=== PATIENT | male | born 1955 | race Caucasian/White ===

== ENCOUNTER → 2023-06-27 09:40 | Outpatient (BNVA) | payer OTHER, SELFPAY | PROVIDERS: Family Provider Nurse Practitioner Family; PCP Nurse Practitioner Family; Visit Provider Nurse Practitioner Family | DX: M54.9 Dorsalgia, unspecified (principal); G89.29 Other chronic pain; L81.4 Other melanin hyperpigmentation; L82.1 Other seborrheic keratosis; M25.511 Pain in right shoulder; I25.10 Atherosclerotic heart disease of native coronary artery without angina pectoris | CPT/HCPCS: 80053; 80061; 85025 ==

== ENCOUNTER → 2023-12-26 09:34 | Outpatient (BNVA) | payer MEDICARE, SELFPAY | PROVIDERS: Family Provider Nurse Practitioner Family; PCP Nurse Practitioner Family; Visit Provider Nurse Practitioner Family | DX: M54.9 Dorsalgia, unspecified (principal); G89.29 Other chronic pain; I25.10 Atherosclerotic heart disease of native coronary artery without angina pectoris | CPT/HCPCS: 80053; 83690; 85025; 86140 ==

== ENCOUNTER 2024-01-16 09:23 | Outpatient (CLI) | payer MEDICARE, SELFPAY ==
--- NOTE | 2024-01-16 09:30 | CT_ITS ---
WS: [id number] CT ABDOMEN AND PELVIS WITH AND WITHOUT CONTRAST HISTORY: R10.9 - Unspecified abdominal pain TECHNIQUE: Unenhanced 5 mm axial imaging first performed through the abdomen. Post contrast imaging t hrough the abdomen and pelvis. Oral contrast has not been provided. Sagittal and coronal reformats a re submitted. All CT scans at [facility] at least one of these dose optimization techniques: automated exposure control; mA and/or kV adjustment per patient size (includes targeted exams where d ose is matched to clinical indication); or iterative reconstruction. CONTRAST: Omnipaque 350; 95 mL IV. DLP: 2385.39 mGy.cm COMPARISON: None available. Lung bases are clear. Heart size is normal. No hiatal hernia. Normal size liver and spleen. Normal pancreas. Normal gallbladder. Normal adrenal glands. Mild athero sclerosis aorta. Mild perinephric stranding around each kidney. No mass or calcification. No renal ob struction. No ascites or adenopathy. Normal stomach and small bowel. Normal appendix. There are a few scattered diverticula in the sigmoid colon. No acute diverticulitis. Prior abdominal hernia repair. Spondylitic changes in the lumbar spine. Mild osteophytic ridging causing foraminal narrowing beginni ng at L3-4 through L5-S1. Component of central stenosis is also present at L3-4 and L4-5. CT/CT abdomen pelvis wo/w [id number] IMPRESSION: 1. No renal obstruction or calcification. There is very slight perinephric str anding which may be chronic. 2. Mild distal colon diverticulosis without acute diverticulitis. 3. No ascites or adenopathy. 4. Component of central and foraminal stenosis in the lumbar spine from L3-4 t o L5-S1. For radiculopathy symptoms recommend MRI lumbar spine, noncontrast.
[2024-01-16] MEDS: iohexol 300 mg/mL 100 mL Btl IV (10:03)
== END 2024-01-16 09:24 | disposition home or self-care (01) ==
LOC: RAD 09:23
PROVIDERS: Family Provider Nurse Practitioner Family; PCP Nurse Practitioner Family; Visit Provider Nurse Practitioner Family
DX: R10.9 Unspecified abdominal pain (principal); K57.30 Diverticulosis of large intestine without perforation or abscess without bleeding; M48.061 Spinal stenosis, lumbar region without neurogenic claudication; M48.07 Spinal stenosis, lumbosacral region
CPT/HCPCS: 74178; Q9967

== ENCOUNTER → 2024-01-21 10:29 | Outpatient (BNVA) | payer MEDICARE, SELFPAY | PROVIDERS: Family Provider Nurse Practitioner Family; PCP Nurse Practitioner Family; Visit Provider Nurse Practitioner Family | DX: I25.10 Atherosclerotic heart disease of native coronary artery without angina pectoris (principal) | CPT/HCPCS: 80048; 86003; 86008; 86618; 86666; 86757 ==

== ENCOUNTER 2024-05-25 12:01 | Emergency (ER) | payer MEDICARE, SELFPAY ==
[2024-05-25 12:18] VITALS: BP 142/86; PULSE 55; TEMP 36.7; O2SAT 96; BMI 40.3
[2024-05-25 14:01] LABS: Basophils % 0.4 %; Eosinophils # 0.1 10^3/uL (0.0-0.8); Eosinophils % 0.9 %; Hematocrit 47.6 % (37-53); Lymphocytes # 1.8 10^3/uL (0.8-4.8); Lymphocytes % 20.2 %; Mean Corpuscular HGB Conc 33.8 g/dL (30-55); Mean Corpuscular Hemoglobin 31.5 pg (27-33); Mean Corpuscular Volume 93.2 fl (82-101); Monocytes # 0.7 10^3/uL (0.2-0.9); Monocytes % 7.8 %; Neutrophils # 6.32 10^3/uL (1.8-7.7); Neutrophils % 70.4 %; Nucleated Red Blood Cells % 0 %; Platelet Count 201 10^3/cmm (157-399); Red Blood Count 5.11 10^6/uL (3.85-5.65); Red Cell Distribution Width 12.3 % (12.1-15.1); White Blood Count 8.98 10^3/uL (3.29-11.43)
[2024-05-25 14:20] LABS: Alanine Aminotransferase 22 U/L (0-41); Albumin Level 3.8 g/dL (3.5-5.2); Alkaline Phosphatase 64 U/L (40-130); Blood Urea Nitrogen 15 mg/dL (8-23); Calcium 8.4 mg/dL (8.5-10.5); Carbon Dioxide 22 mmol/L (22-29); Chloride 103 mmol/L (98-107); Creatinine Clr Calc Pharmacy 92.1507; Globulin 3.3 g/dL (1.3-4.6); Glomerular Filtration Rate 73.9 mL/min (90-130); Glucose 161 mg/dL (65-115); Lipase 29 U/L (13-60); Osmolality Calculated 288 mOsm/kg (285-295); Sodium 137 mmol/L (136-145); Total Bilirubin 0.9 mg/dL (0.15-1.2); Total Protein 7.1 g/dL (6.6-8.7)
[2024-05-25 14:21] LABS: Anion Gap 16.5 (5-19); Aspartate Amino Transferase 23 U/L (0-40); Potassium 4.5 mmol/L (3.5-5.1)
--- NOTE | 2024-05-25 16:26 | CTR_ITS ---
PROCEDURE INFORMATION: Exam: CT Abdomen And Pelvis With Contrast Exam date and time: 05/25/2024 7:01 PM Age: 69 years old Clinical indication: Abdominal pain; Additional info: Painful/abnormal bms, flatulence, rectal pain, dec appetite TECHNIQUE: Imaging protocol: Computed tomography of the abdomen and pelvis with contrast. Radiation optimization: All CT scans at this facility use at least one of these dose optimization techniques: automated exposure control; mA and/or kV adjustment per patient size (includes targeted exams where dose is matched to clinical indication); or iterative reconstruction. Contrast material: OMNI 350; Contrast volume: 100 ml; Contrast route: INTRAVENOUS (IV); COMPARISON: CT abdomen pelvis wo/w [id number] 01/16/2024 9:54 AM RADIATION DOSE METRICS: Total DLP (mGy-cm): 1232 FINDINGS: Lungs: Lung bases are clear. No pleural effusion. Liver: Normal. No mass. Gallbladder and biliary ducts: Normal. No calcified stones. No ductal dilation. Pancreas: Normal. No ductal dilation. Spleen: Normal. No splenomegaly. Adrenal glands: Normal. No mass. Kidneys and ureters: Normal. No hydronephrosis. Stomach and bowel: Unremarkable. No obstruction. No mucosal thickening. Appendix: No evidence of appendicitis. Intraperitoneal space: Unremarkable. No free air. No significant fluid collection. Vasculature: Unremarkable. No abdominal aortic aneurysm. Lymph nodes: Unremarkable. No enlarged lymph nodes. Urinary bladder: Unremarkable as visualized. Reproductive: Unremarkable as visualized. Bones/joints: Unremarkable. No acute fracture. Soft tissues: Unremarkable. CT/CT abdomen pelvis w con* [id number] IMPRESSION: No acute findings.
--- NOTE | 2024-05-25 16:27 | W.ED.ABDPA2 ---
Documented by User: MARIANA White 05/25/24 17:00 HPI - Abdominal Pain General: Chief Complaint: Abdominal Pain Stated Complaint: abdominal pain/unable to have BM Time Seen by Provider: 05/25/24 15:54 Source: patient Mode of arrival: ambulatory Limitations: no limitations History of Present Illness: Patient is a very nice 69-year-old male who presents to ED today for medical evaluation. Patient states approximately 3 weeks ago he began feeling ill with what he believed was possible COVID or the flu. He was having sweats, chills, diffuse diarrhea. He states that lasted for about 2 weeks. He states his other symptoms have resolved but he is left with quite a few abdominal/bowel complaints that he is concerned with. He states over the past several days he has only been able to pass small curds of stool. He is also having mucousy stool. He reports pain in his rectum and abdomen with defecation. He is also having significant abdominal cramping. Last colonoscopy was approximately 5, 6, 7 years ago-something like that and reportedly normal. Has not noticed any hematochezia. He is not having any vomiting. He does report decreased appetite and a sensation of early satiety. He also reports passing a large amount of flatulence. MD elicited complaint: abdominal pain Pertinent past history: none Onset (ago): week(s) Pain Consistency: intermittent Location: RLQ and LLQ Severity: moderate Quality: cramping Radiation: none Migration to: no migration Exacerbating factors: nothing Relieving factors: nothing Associated Symptoms: Reports change in bowel habits, change in stool character and excessive flatus; Denies bloating, chills, coffee ground emesis, constipation, GI cramping, diarrhea, dysuria, fever(s), hematochezia, melena, nausea and vomiting Related Data Home Medications Medication Instructions Recorded Confirmed clopidogrel 75 mg tablet (Plavix) 75 mg PO QDAY 10/02/19 01/21/24 metoprolol tartrate 100 mg tablet 50 mg PO BID 10/02/19 01/21/24 rosuvastatin 20 mg tablet 20 mg PO QDAY 10/02/19 01/21/24 hydrocodone 5 mg-acetaminophen 325 1 tab PO Q6H PRN 09/12/23 01/21/24 mg tablet tamsulosin 0.4 mg capsule 0.4 mg PO DAILY 09/12/23 01/21/24 Previous Rx's Medication Instructions Recorded albuterol sulfate 90 mcg/actuation 2 puff inhalation 6XD PRN 09/17/23 aerosol inhaler (ProAir HFA) shortness of breath or wheezing #8.5 grams prednisone 20 mg tablet 20 mg PO DAILY #20 tabs 10/03/23 tretinoin 0.1 % topical cream 1 applic topical Q2D #45 grams 12/26/23 (Retin-A) triamcinolone acetonide 0.5 % 1 applic topical BID #15 grams 05/25/24 topical ointment Allergies Allergy/AdvReac Type Severity Reaction Status Date / Time Sulfa (Sulfonamide Allergy Unknown Verified 05/25/24 12:25 Antibiotics) Review of Systems Const: Denies: fever(s), chills, body aches, fatigue or malaise Card: Denies: chest pain Resp: Denies: dyspnea GI: Reports: abdominal pain, early satiety, excessive flatus, change in bowel habits, rectal pain and change in stool character; Denies: nausea, vomiting, coffee ground emesis, diarrhea, constipation, bloating, GI cramping, rectal swelling, rectal itching, hematochezia or melena : Denies: flank pain, difficulty urinating, dysuria, urinary frequency, urinary urgency or urinary hesitancy Musc: Denies: neck pain, back pain, extremity pain or joint pain Skin/Breast: Denies: rash Neuro: Denies: headache(s), numbness in extremities, weakness in extremities, sensory changes or dizziness PFSH ED PFSH: Medical History Hyperlipemia, mixed HTN (hypertension), benign CAD (coronary artery disease) Surgical History Hx of heart artery stent Social History Smoking and tobacco/nicotine status: never used tobacco/nicotine Physical Exam Const: COMMON NORMALS: no acute distress, patient oriented x3, no limitations, alert and well nourished GENERAL APPEARANCE: cooperative NUTRITIONAL APPEARANCE: obese ORIENTATION/CONSCIOUSNESS: Yes awake, Yes oriented to person, Yes oriented to place and Yes oriented to time Eye: COMMON NORMALS: no scleral icterus Resp: COMMON NORMALS: normal respiratory effort and clear to auscultation bilaterally AUSCULTATION: clear to auscultation bilaterally Cardio: COMMON NORMALS: regular rate and regular rhythm RATE: regular rate RHYTHM: regular rhythm GI: COMMON NORMALS: Normal to inspection, nondistended, normoactive bowel sounds present, Soft to palpation and no masses INSPECTION: Yes normal to inspection and Yes other (previous umbilical scar from hernia repair) AUSCULTATION: Yes normoactive bowel sounds PALPATION: Yes Soft to palpation and Yes Tenderness to palpation present (GI) (across lower abdomen ) : COMMON NORMALS: Yes no CVA tenderness BLADDER/KIDNEY EXAM: Yes no CVA tenderness Back/Pelvis: COMMON NORMALS: no CVA tenderness Neuro: COMMON NORMALS: patient oriented x3 SENSORIUM/ORIENTATION: Yes alert, Yes oriented to person, Yes oriented to place and Yes oriented to time Course Vital Signs: Vital signs: Vital Signs Temperature 98.0 F 05/25/24 12:18 Pulse Rate 62 05/25/24 21:20 Respiratory Rate 16 05/25/24 19:22 Blood Pressure 126/73 05/25/24 21:20 Pulse Oximetry 96 05/25/24 21:20 Oxygen Delivery Me thod Room Air 05/25/24 19:22 MDM - Abdominal Pain Lab Data 05/25/24 13:46 05/25/24 13:46 Labs/Radiology: Radiology Impressions Abdomen/Pelvis CT 05/25/24 16:26 IMPRESSION: No acute findings. Laboratory Results WBC 8.98 10^3/uL (3.29-11.43) 05/25/24 13:46 RBC 5.11 10^6/uL (3.85-5.65) 05/25/24 13:46 Hgb 16.10 g/dL (11.27-16.99) 05/25/24 13:46 Hct 47.6 % (37-53) 05/25/24 13:46 MCV 93.2 fl (82-101) 05/25/24 13:46 MCH 31.5 pg (27-33) 05/25/24 13:46 MCHC 33.8 g/dL (30-55) 05/25/24 13:46 RDW 12.3 % (12.1-15.1) 05/25/24 13:46 Plt Count 201 10^3/cmm (157-399) 05/25/24 13:46 MPV 11.0 fL (7.4-10.4) H 05/25/24 13:46 Neut % (Auto) 70.4 % 05/25/24 13:46 Lymph % (Auto) 20.2 % 05/25/24 13:46 Caswell % (Auto) 7.8 % 05/25/24 13:46 Eos % (Auto) 0.9 % 05/25/24 13:46 Baso % (Auto) 0.4 % 05/25/24 13:46 Neut # (Auto) 6.32 10^3/uL (1.8-7.7) 05/25/24 13:46 Lymph # (Auto) 1.8 10^3/uL (0.8-4.8) 05/25/24 13:46 Caswell # (Auto) 0.7 10^3/uL (0.2-0.9) 05/25/24 13:46 Eos # (Auto) 0.1 10^3/uL (0.0-0.8) 05/25/24 13:46 Baso # (Auto) 0.0 10^3/uL (0.0-0.1) 05/25/24 13:46 Nucleated RBC % (auto) 0 % 05/25/24 13:46 Nucleated RBCs # 0.0 /100WBC 05/25/24 13:46 Sodium 137 mmol/L (136-145) 05/25/24 13:46 Potassium 4.5 mmol/L (3.5-5.1) 05/25/24 13:46 Chloride 103 mmol/L (98-107) 05/25/24 13:46 Carbon Dioxide 22 mmol/L (22-29) 05/25/24 13:46 Anion Gap 16.5 (5-19) 05/25/24 13:46 BUN 15 mg/dL (8-23) 05/25/24 13:46 Creatinine 1.0 mg/dL (0.7-1.2) 05/25/24 13:46 GFR Calculation 73.9 mL/min (90-130) L 05/25/24 13:46 Glucose 161 mg/dL (65-115) H 05/25/24 13:46 Calculated Osmolality 288 mOsm/kg (285-295) 05/25/24 13:46 Calcium 8.4 mg/dL (8.5-10.5) L 05/25/24 13:46 Total Bilirubin 0.9 mg/dL (0.15-1.2) 05/25/24 13:46 AST 23 U/L (0-40) 05/25/24 13:46 ALT 22 U/L (0-41) 05/25/24 13:46 Alkaline Phosphatase 64 U/L (40-130) 05/25/24 13:46 Total Protein 7.1 g/dL (6.6-8.7) 05/25/24 13:46 Albumin 3.8 g/dL (3.5-5.2) 05/25/24 13:46 Globulin 3.3 g/dL (1.3-4.6) 05/25/24 13:46 Lipase 29 U/L (13-60) 05/25/24 13:46 Urine Color Yellow (Yellow) 05/25/24 18:56 Urine Appearance Clear (CLEAR) 05/25/24 18:56 Urine pH 5 (5-7) 05/25/24 18:56 Ur Specific [employer] 1.020 (1.005-1.030) 05/25/24 18:56 Urine Protein Neg (Negative) 05/25/24 18:56 Urine Glucose (UA) Norm (Normal) 05/25/24 18:56 Urine Ketones Negative (Negative) 05/25/24 18:56 Urine Blood Neg (Negative) 05/25/24 18:56 Urine Nitrate Negative (Negative) 05/25/24 18:56 Urine Bilirubin Neg (Negative) 05/25/24 18:56 Urine Urobilinogen Norm mg/dL (Negative) 05/25/24 18:56 Ur Leukocyte Esterase Negative (Negative) 05/25/24 18:56 Amorphous Sediment Not Reportable 05/25/24 18:56 Discharge Plan Discharge Patient Disposition: Home Clinical Impression: Chronic diarrhea, Anal or rectal pain Condition: Stable Prescriptions: New triamcinolone acetonide 0.5 % ointment 1 applic topical BID Qty: 15 0RF No Action clopidogrel [Plavix] 75 mg tablet 75 mg PO QDAY rosuvastatin 20 mg tablet 20 mg PO QDAY metoprolol tartrate 100 mg tablet 50 mg PO BID tretinoin [Retin-A] 0.1 % cream 1 applic topical Q2D Qty: 45 1RF hydrocodone-acetaminophen 5-325 mg tablet 1 tab PO Q6H PRN tamsulosin 0.4 mg capsule 0.4 mg PO DAILY prednisone 20 mg tablet 20 mg PO DAILY Qty: 20 0RF Rx Instructions: 3 tabs a day for 3 days then 2 tabs a day for 3 days then 1 tab a day for 5 days albuterol sulfate [ProAir HFA] 90 mcg/actuation HFA aerosol inhaler 2 puff inhalation 6XD PRN (Reason: shortness of breath or wheezing) Qty: 8.5 0RF Discharge Orders: Discharge ED (Routine); Ordered 05/25/24 Ordered By: Mat Casarez Referrals: Johnny Ricardo FNP [Primary Care Provider] - Discharge Diet: As Directed Discharge Activity: Increase activity as tolerated Patient Instructions: Diarrhea - Adult Activity Restrictions/Additional Instructions: Follow-up with general surgery as discussed. Clear liquid diet. Apply topical triamcinolone for your rectal pain. Continue drinking plenty of fluids. Return with any new or worsening symptoms. Sign Out Sign Out Data: Patient Sign Out occurred on 05/25/24 at 17:11. Patient's care was discussed, and care was transferred from MARIANA White to MARIANA Chaney. Coding Level of Care Code ED Pulverizer Operator for Chg Fwd Documented by User: MARIANA Chaney 05/26/24 00:16 HPI - Abdominal Pain General: Chief Complaint: Abdominal Pain Stated Complaint: abdominal pain/unable to have BM Time Seen by Provider: 05/25/24 15:54 Related Data Home Medications Medication Instructions Recorded Confirmed clopidogrel 75 mg tablet (Plavix) 75 mg PO QDAY 10/02/19 01/21/24 metoprolol tartrate 100 mg tablet 50 mg PO BID 10/02/19 01/21/24 rosuvastatin 20 mg tablet 20 mg PO QDAY 10/02/19 01/21/24 hydrocodone 5 mg-acetaminophen 325 1 tab PO Q6H PRN 09/12/23 01/21/24 mg tablet tamsulosin 0.4 mg capsule 0.4 mg PO DAILY 09/12/23 01/21/24 Previous Rx's Medication Instructions Recorded albuterol sulfate 90 mcg/actuation 2 puff inhalation 6XD PRN 09/17/23 aerosol inhaler (ProAir HFA) shortness of breath or wheezing #8.5 grams prednisone 20 mg tablet 20 mg PO DAILY #20 tabs 10/03/23 tretinoin 0.1 % topical cream 1 applic topical Q2D #45 grams 12/26/23 (Retin-A) triamcinolone acetonide 0.5 % 1 applic topical BID #15 grams 05/25/24 topical ointment Allergies Allergy/AdvReac Type Severity Reaction Status Date / Time Sulfa (Sulfonamide Allergy Unknown Verified 05/25/24 12:25 Antibiotics) [facility] ED PFSH: Medical History Hyperlipemia, mixed HTN (hypertension), benign CAD (coronary artery disease) Surgical History Hx of heart artery stent Social History Smoking and tobacco/nicotine status: never used tobacco/nicotine Course Vital Signs: Vital signs: Vital Signs Temperature 98.0 F 05/25/24 12:18 Pulse Rate 62 05/25/24 21:20 Respiratory Rate 16 05/25/24 19:22 Blood Pressure 126/73 05/25/24 21:20 Pulse Oximetry 96 05/25/24 21:20 Oxygen Delivery Ri thod Room Air 05/25/24 19:22 MDM - Abdominal Pain Medical Decision Making Care of patient transferred over to k[place] by admit shift provider. His labs and imaging were negative. States that his diarrhea has been chronic for weeks to months, has never been referred to gastroenterology so we will refer him now. Also states it has been close to 10 years since his last colonoscopy. He is encouraged to enact liquid diet at this time and we will give him triamcinolone for his rectal pain. Other reasons to return discussed he will be discharged home at this time. Lab Data 05/25/24 13:46 05/25/24 13:46 Labs/Radiology: Radiology Impressions Abdomen/Pelvis CT 05/25/24 16:26 IMPRESSION: No acute findings. Laboratory Results WBC 8.98 10^3/uL (3.29-11.43) 05/25/24 13:46 RBC 5.11 10^6/uL (3.85-5.65) 05/25/24 13:46 Hgb 16.10 g/dL (11.27-16.99) 05/25/24 13:46 Hct 47.6 % (37-53) 05/25/24 13:46 MCV 93.2 fl (82-101) 05/25/24 13:46 MCH 31.5 pg (27-33) 05/25/24 13:46 MCHC 33.8 g/dL (30-55) 05/25/24 13:46 RDW 12.3 % (12.1-15.1) 05/25/24 13:46 Plt Count 201 10^3/cmm (157-399) 05/25/24 13:46 MPV 11.0 fL (7.4-10.4) H 05/25/24 13:46 Neut % (Auto) 70.4 % 05/25/24 13:46 Lymph % (Auto) 20.2 % 05/25/24 13:46 Cas[place] % (Auto) 7.8 % 05/25/24 13:46 Eos % (Auto) 0.9 % 05/25/24 13:46 Baso % (Auto) 0.4 % 05/25/24 13:46 Neut # (Auto) 6.32 10^3/uL (1.8-7.7) 05/25/24 13:46 Lymph # (Auto) 1.8 10^3/uL (0.8-4.8) 05/25/24 13:46 Caswell # (Auto) 0.7 10^3/uL (0.2-0.9) 05/25/24 13:46 Eos # (Auto) 0.1 10^3/uL (0.0-0.8) 05/25/24 13:46 Baso # (Auto) 0.0 10^3/uL (0.0-0.1) 05/25/24 13:46 Nucleated RBC % (auto) 0 % 05/25/24 13:46 Nucleated RBCs # 0.0 /100WBC 05/25/24 13:46 Sodium 137 mmol/L (136-145) 05/25/24 13:46 Potassium 4.5 mmol/L (3.5-5.1) 05/25/24 13:46 Chloride 103 mmol/L (98-107) 05/25/24 13:46 Carbon Dioxide 22 mmol/L (22-29) 05/25/24 13:46 Anion Gap 16.5 (5-19) 05/25/24 13:46 BUN 15 mg/dL (8-23) 05/25/24 13:46 Creatinine 1.0 mg/dL (0.7-1.2) 05/25/24 13:46 GFR Calculation 73.9 mL/min (90-130) L 05/25/24 13:46 Glucose 161 mg/dL (65-115) H 05/25/24 13:46 Calculated Osmolality 288 mOsm/kg (285-295) 05/25/24 13:46 Calcium 8.4 mg/dL (8.5-10.5) L 05/25/24 13:46 Total Bilirubin 0.9 mg/dL (0.15-1.2) 05/25/24 13:46 AST 23 U/L (0-40) 05/25/24 13:46 ALT 22 U/L (0-41) 05/25/24 13:46 Alkaline Phosphatase 64 U/L (40-130) 05/25/24 13:46 Total Protein 7.1 g/dL (6.6-8.7) 05/25/24 13:46 Albumin 3.8 g/dL (3.5-5.2) 05/25/24 13:46 Globulin 3.3 g/dL (1.3-4.6) 05/25/24 13:46 Lipase 29 U/L (13-60) 05/25/24 13:46 Urine Color Yellow (Yellow) 05/25/24 18:56 Urine Appearance Clear (CLEAR) 05/25/24 18:56 Urine pH 5 (5-7) 05/25/24 18:56 Ur Specific [employer] 1.020 (1.005-1.030) 05/25/24 18:56 Urine Protein Neg (Negative) 05/25/24 18:56 Urine Glucose (UA) Norm (Normal) 05/25/24 18:56 Urine Ketones Negative (Negative) 05/25/24 18:56 Urine Blood Neg (Negative) 05/25/24 18:56 Urine Nitrate Negative (Negative) 05/25/24 18:56 Urine Bilirubin Neg (Negative) 05/25/24 18:56 Urine Urobilinogen Norm mg/dL (Negative) 05/25/24 18:56 Ur Leukocyte Esterase Negative (Negative) 05/25/24 18:56 Amorphous Sediment Not Reportable 05/25/24 18:56 All radiology interpretation(s) finalized by discharge Discharge Plan Discharge Patient Disposition: Home Clinical Impression: Chronic diarrhea, Anal or rectal pain Condition: Stable Prescriptions: New triamcinolone acetonide 0.5 % ointment 1 applic topical BID Qty: 15 0RF No Action clopidogrel [Plavix] 75 mg tablet 75 mg PO QDAY rosuvastatin 20 mg tablet 20 mg PO QDAY metoprolol tartrate 100 mg tablet 50 mg PO BID tretinoin [Retin-A] 0.1 % cream 1 applic topical Q2D Qty: 45 1RF hydrocodone-acetaminophen 5-325 mg tablet 1 tab PO Q6H PRN tamsulosin 0.4 mg capsule 0.4 mg PO DAILY prednisone 20 mg tablet 20 mg PO DAILY Qty: 20 0RF Rx Instructions: 3 tabs a day for 3 days then 2 tabs a day for 3 days then 1 tab a day for 5 days albuterol sulfate [ProAir HFA] 90 mcg/actuation HFA aerosol inhaler 2 puff inhalation 6XD PRN (Reason: shortness of breath or wheezing) Qty: 8.5 0RF Discharge Orders: Discharge ED (Routine); Ordered 05/25/24 Ordered By: Mat Casarez Referrals: Johnny Ricardo FNP [Primary Care Provider] - Discharge Diet: As Directed Discharge Activity: Increase activity as tolerated Patient Instructions: Diarrhea - Adult Activity Restrictions/Additional Instructions: Follow-up with general surgery as discussed. Clear liquid diet. Apply topical triamcinolone for your rectal pain. Continue drinking plenty of fluids. Return with any new or worsening symptoms. Sign Out Sign Out Data: Patient Sign Out occurred on 05/25/24 at 17:11. Patient's care was discussed, and care was transferred from MARIANA White to MARIANA Chaney. Coding Level of Care Code ED Pulverizer Operator for Emory Barrett
[2024-05-25 19:07] LABS: Add Urine Microscopic? NO
[2024-05-25 19:12] LABS: Bilirubin Urine Neg (Negative); Blood Urine Neg (Negative); Glucose Urine UA Norm (Normal); Ketones Urine Negative (Negative); Leukocyte Esterase Urine Negative (Negative); Nitrate Urine Negative (Negative); Protein Urine Neg (Negative); Urine Appearance Clear (CLEAR); Urine Color Yellow (Yellow); Urobilinogen Urine Norm (Negative); pH Urine 5 (5-7)
[2024-05-25] MEDS: iohexol 350 mg/mL 500 mL Btl (per mL) IV (19:12)
[2024-05-25 19:14] LABS: Charge for UA Resulting for Rev
[2024-05-25 19:22] VITALS: BP 160/90; PULSE 63; RESP 16; O2SAT 97
[2024-05-25 19:30] VITALS: BP 144/92; PULSE 64; O2SAT 96
[2024-05-25 20:44] VITALS: BP 156/78; PULSE 61; O2SAT 97
[2024-05-25 21:00] VITALS: BP 154/65; PULSE 67; O2SAT 95
[2024-05-25 21:20] VITALS: BP 126/73; PULSE 62; O2SAT 96
--- NOTE | 2024-05-26 01:46 | DCPLANNER ---
Message sent to General Surgeon -
== END 2024-05-25 21:22 | disposition home or self-care (01) ==
PROVIDERS: Physician Assistant; Emergency Provider Physician Assistant; Family Provider Nurse Practitioner Family; PCP Nurse Practitioner Family
DX: K52.9 Noninfective gastroenteritis and colitis, unspecified (principal); K62.89 Other specified diseases of anus and rectum; Z79.02 Long term (current) use of antithrombotics/antiplatelets; E78.2 Mixed hyperlipidemia; I10 Essential (primary) hypertension; I25.10 Atherosclerotic heart disease of native coronary artery without angina pectoris
CPT/HCPCS: 36415; 74177; 80053; 81003; 83690; 85025; 99285

== ENCOUNTER → 2024-05-27 12:59 | Outpatient (BNVA) | payer MEDICARE, SELFPAY | PROVIDERS: Family Provider Nurse Practitioner Family; PCP Nurse Practitioner Family; Referring Provider Physician Assistant; Visit Provider Student in an Organized Health Care Education/Training Program | DX: Z12.11 Encounter for screening for malignant neoplasm of colon (principal) | CPT/HCPCS: 99024; 99204 ==

== ENCOUNTER 2024-06-15 07:28 | Day surgery (SDC) | payer MEDICARE, SELFPAY ==
[2024-06-15 07:43] VITALS: BP 143/82; PULSE 51; RESP 16; TEMP 36.3; O2SAT 94; BMI 40.1
[2024-06-15] MEDS: sodium chloride 0.9% 1,000 ML 30 ML IV (07:55)
--- NOTE | 2024-06-15 08:24 | W.PM.OPSUD ---
Surgery/Procedure H&P Update DATE OF PROCEDURE: June 15, 2024 DATE H&P PERFORMED: 05/27/24 H&P UPDATE INFORMATION: I have reviewed H&P completed within last 30 days, I have examined patient prior to procedure and No changes to prior documentation PLANNED PROCEDURE: Operation Date: 06/15/24 08:50 Proposed Procedures p EGD - 83441, 77016, G0105, Z12.11, R10.9(Not Applicable) - Mark Rogers MD s Colonoscopy(Not Applicable) - Mark Rogers MD
--- NOTE | 2024-06-15 08:37 | P.ANESASSM_ITS ---
Pre-Anesthetic Assessment Height/Weight: Height 1.78 m Weight 127.006 kg Temp Pulse Resp BP Pulse Ox O2 Del Method 97.3 F L 51 L 16 143/82 94 Room Air 06/15/24 07:43 06/15/24 07:43 06/15/24 07:43 06/15/24 07:43 06/15/24 07:43 06/15/24 07:43 Preop Diagnosis: Abd pain Operation Date: 06/15/24 08:50 Proposed Procedures p EGD - 77132, 79461, G0105, Z12.11, R10.9(Not Applicable) - Mark Rogers MD s Colonoscopy(Not Applicable) - Mark Rogers MD Familial anesthetic complications: none Was Beta Rachel taken within 24 hours: Yes Was Clonidine taken within 24 hours: N/A Last intake: Intake Last Liquid Date 06/14/24 Last Liquid Time 22:30 Last Solid Date 06/13/24 Last Solid Time 17:00 Social No alcohol and No tobacco Exam alert, oriented x 3, clear to auscultation bilaterally and regular rate & rhythm Airway Submandibular: within normal limits Cervical ROM: within normal limits Mallampati: Class II Dentition: chipped History/ROS No significant history except as noted and No significant complaints Pulmonary None reported 4 mets CV/HEM Coronary Artery Disease, Congestive Heart Failure and Hypertension stents 12 years ago None reported Hepatic None reported GI None reported Metabolic Morbid Obesity [facility] None reported Neuropsych None reported Anesthetic Plan Anesthesia: MAC Risk of > 500 ml blood loss (7ml/kg in children): No Other Pertinent Information none Medications/Allergies Home Medications Medication Instructions Recorded Confirmed Last Taken Type clopidogrel 75 mg tablet (Plavix) 75 mg PO QDAY 10/02/19 06/15/24 06/07/24 History metoprolol tartrate 100 mg tablet 50 mg PO BID 10/02/19 06/15/24 06/15/24 History rosuvastatin 20 mg tablet 20 mg PO QDAY 10/02/19 06/15/24 06/07/24 History albuterol sulfate 90 mcg/actuation 2 puff inhalation 6XD PRN 09/17/23 06/15/24 Unknown Rx aerosol inhaler (ProAir HFA) shortness of breath or wheezing #8.5 grams hydrocortisone 2.5 % topical cream 1 applic RI QID hemorrhoids 10 05/27/24 10/07/24 Unknown Rx with perineal applicator days #30 grams (Anusol-HC) Allergies Allergy/AdvReac Type Severity Reaction Status Date / Time Sulfa (Sulfonamide Allergy Unknown Verified 06/11/24 08:47 Antibiotics) Current Medications Generic Name Dose Route Start Last Admin Trade Name Freq PRN Reason Stop Dose Admin Sodium Chloride 1,000 mls @ 30 mls/hr 06/15/24 07:45 06/15/24 07:55 Sodium Chloride 0.9% IV 30 mls/hr .Q24H ANDREA Administration PFSH Anesthesia Medical History (Updated 06/02/24 @ 00:01 by GRACIE Marinelli) Hyperlipemia, mixed HTN (hypertension), benign CAD (coronary artery disease) Surgical History (Updated 05/27/24 @ 13:11 by ORIN Bergeron) Hx of heart artery stent Family History (Updated 05/27/24 @ 13:12 by ORIN Bergeron) Unknown Heart disease Social History Smoking and tobacco/nicotine status: never used tobacco/nicotine Data Anesthesia Cardiac Studies: No Data to Display
[2024-06-15 09:33] VITALS: BP 127/69; PULSE 56; RESP 18; TEMP 36.2; O2SAT 97
[2024-06-15 09:44] VITALS: BP 126/66; PULSE 48; RESP 18; O2SAT 93
[2024-06-15 09:50] VITALS: BP 138/79; PULSE 52; RESP 18; O2SAT 91
[2024-06-15 10:00] VITALS: BP 141/98; PULSE 52; RESP 18; O2SAT 96
--- NOTE | 2024-06-15 10:50 | ANE.PACU2 ---
Inpatient post-anesthesia follow up: Airway intact: Yes Vital signs: Temperature 97.2 F Pulse Rate 52 Respiratory Rate 18 Blood Pressure 141/98 Pulse Oximetry 96 Oxygen Delivery Me thod Room Air Oxygen Flow Rate 3 Fraction of Inspir ed Oxygen Hydration adequate: Yes Pain level: 1 Mental status: Baseline
== END 2024-06-15 10:51 | disposition home or self-care (01) ==
PROVIDERS: PCP Nurse Practitioner Family; Visit Provider Student in an Organized Health Care Education/Training Program
PROC: 0DJ08ZZ Inspection of Upper Intestinal Tract, Via Natural or Artificial Opening Endoscopic (ICD-10-PCS; CPT 43235; principal; 2024-06-15 08:50)
PROC: 0DJD8ZZ Inspection of Lower Intestinal Tract, Via Natural or Artificial Opening Endoscopic (ICD-10-PCS; CPT 45378; 2024-06-15 08:50)
DX: Z12.11 Encounter for screening for malignant neoplasm of colon (principal); D12.0 Benign neoplasm of cecum; K29.70 Gastritis, unspecified, without bleeding; I25.10 Atherosclerotic heart disease of native coronary artery without angina pectoris; I11.0 Hypertensive heart disease with heart failure; I50.9 Heart failure, unspecified; E66.01 Morbid (severe) obesity due to excess calories; Z68.41 Body mass index [BMI] 40.0-44.9, adult; E78.2 Mixed hyperlipidemia
CPT/HCPCS: 43239; 45380; 88305; J2704; J3490; J7030

== ENCOUNTER → 2024-06-30 10:12 | Outpatient (BNVA) | payer MEDICARE, SELFPAY | PROVIDERS: PCP Nurse Practitioner Family; Visit Provider Student in an Organized Health Care Education/Training Program | DX: Z09 Encounter for follow-up examination after completed treatment for conditions other than malignant neoplasm (principal); R03.0 Elevated blood-pressure reading, without diagnosis of hypertension | CPT/HCPCS: 99214 ==

== ENCOUNTER → 2024-08-03 10:58 | Outpatient (BNVA) | payer MEDICARE, SELFPAY | PROVIDERS: PCP Nurse Practitioner Family; Visit Provider Nurse Practitioner Family | DX: R73.09 Other abnormal glucose (principal) | CPT/HCPCS: 83036 ==

== ENCOUNTER → 2025-02-04 10:34 | Outpatient (BNVA) | payer MEDICARE, SELFPAY | PROVIDERS: PCP Nurse Practitioner Family; Visit Provider Nurse Practitioner Family | DX: I25.10 Atherosclerotic heart disease of native coronary artery without angina pectoris (principal); I10 Essential (primary) hypertension | CPT/HCPCS: 80053; 80061; 85025 ==

== ENCOUNTER → 2025-06-01 10:04 | Outpatient (BNVA) | payer MEDICARE, SELFPAY | PROVIDERS: PCP Nurse Practitioner Family; Visit Provider Nurse Practitioner Family | DX: I10 Essential (primary) hypertension (principal); R73.09 Other abnormal glucose; R20.0 Anesthesia of skin; R20.2 Paresthesia of skin; E55.9 Vitamin D deficiency, unspecified | CPT/HCPCS: 80053; 80061; 82607; 82652; 83036; 84443 ==

== ENCOUNTER 2025-06-17 14:23 | Outpatient (CLI) | payer MEDICARE, SELFPAY ==
--- NOTE | 2025-06-17 14:00 | USR_ITS ---
PROCEDURE INFORMATION: Exam: US Duplex Bilateral Lower Extremity Arteries Exam date and time: 06/17/2025 2:54 PM Age: 70 years old Clinical indication: Pain; Leg, lower; Bilateral; Additional info: M79.604 - pain in right leg TECHNIQUE: Imaging protocol: Real-time ultrasound scan of the arteries of the bilateral lower extremities with 2-D gordon scale, color Doppler flow and spectral waveform analysis. Images documented and saved. COMPARISON: CT abdomen pelvis w con* [id number] 05/25/2024 7:01 PM FINDINGS: Right common femoral artery: No occlusion or significant stenosis. Normal waveform. Right superficial femoral artery: No occlusion or significant stenosis. Normal waveform. Right popliteal artery: No occlusion or significant stenosis. Normal waveform. Right calf/foot arteries: No occlusion or significant stenosis in the visualized arteries. Normal waveforms. Dorsalis pedis artery is patent. Left common femoral artery: No occlusion or significant stenosis. Normal waveform. Left superficial femoral artery: No occlusion or significant stenosis. Normal waveform. Left popliteal artery: No occlusion or significant stenosis. Normal waveform. Left calf/foot arteries: No occlusion or significant stenosis in the visualized arteries. Normal waveforms. Dorsalis pedis artery is patent. Right VALERIE 1.19 Left VALERIE 1.14 US/CV arterial duplex [facility] [id number] IMPRESSION: No stenosis or occlusion.
== END 2025-06-17 14:24 | disposition home or self-care (01) ==
LOC: RAD 14:26
PROVIDERS: PCP Nurse Practitioner Family; Visit Provider Nurse Practitioner Family
DX: M79.604 Pain in right leg (principal); M79.605 Pain in left leg
CPT/HCPCS: 93925